=== PATIENT | female | born 1960 | race Caucasian/White ===

== ENCOUNTER 2016-09-13 11:05 | Day surgery (SDC) | payer BC ==
[2016-09-12 14:40] LABS: HEMATOCRIT 34.9 % (36.0-48.0); HEMOGLOBIN 11.6 g/dL (12.0-16.0)
[2016-09-12 14:55] LABS: A/G RATIO 1.1 (0.7-1.9); ALBUMIN 3.9 G/DL (3.5-5.0); ALKALINE PHOSPHATASE 56 U/L (45-117); BUN (BLOOD UREA NITROGEN) 19 MG/DL (6-23); CALCIUM, SERUM 9.2 MG/DL (8.5-10.4); CHLORIDE, SERUM 105 MMOL/L (96-112); CO2 (CARBON DIOXIDE) 29 MMOL/L (24-34); CREATININE 1.06 MG/DL (0.55-1.02); GFR AFRICAN AMERICAN 69 ML/MIN (>=60); GFR NON AFRICAN AMERICAN 59 ML/MIN (>=60); GLOBULIN 3.7 G/DL (2.5-4.1); GLUCOSE, SERUM 93 MG/DL (60-99); SGOT(AST) 18 U/L (5-40); SGPT(ALT) 20 U/L (5-65); SODIUM, SERUM 141 MMOL/L (135-148); TOTAL BILIRUBIN 0.4 MG/DL (0-1.2); TOTAL PROTEIN 7.6 G/DL (6.0-8.5)
--- NOTE | ~2016-09-13 | OP ---
Record Of Operation [facility] [address] [place]. [address] NAME: YOUSUF GOODE : 62 STATUS : REG [facility] PAT#: [id number] AGE: 55 ADM/REG DATE : 09/13/16 MR#: [id number] REPORT SERV DATE: 09/13/16 DICTATED BY: MERI STUART JR. 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 She is in need of venous access for chemotherapy. PREOPERATIVE DIAGNOSIS: Carcinoma of the left breast with need of venous access for chemotherapy. POSTOPERATIVE DIAGNOSIS: Carcinoma of the left breast with need of venous access for chemotherapy. SURGEON: Meri Stuart M.D. SURGERY PERFORMED: Insertion of PowerPort venous port. DESCRIPTION OF PROCEDURE: With anesthesia support, the patient was prepped and draped in supine position in the usual sterile fashion. The infraclavicular region on the right side was anesthetized. The needle was inserted, but I was unable to find the vein on two passes. At this point, the internal jugular was selected on the right side. The passage was accomplished on first stick with the needle. Fluoroscopy was used to document positioning. The catheter was inserted into the vein through a Tear-Away introducer. It was tunneled into the surgical site in the infraclavicular region on the right, where the pocket was created. The catheter system was assembled, aspirated, flushed, and secured to the chest wall with Prolene. Fluoroscopy revealed correct position of the catheter tip at the junction of the vena cava and atrium. No kinking of the catheter. The wound was irrigated. Hemostasis was obtained. The wound was wound closed with three layers of Monocryl. The patient tolerated the procedure well without complications. ESTIMATED BLOOD LOSS: Negligible. SPONGE COUNT: Correct. /JANIA Meri Stuart Jr., M.D. / [id number] Record Of Operation [facility] [address] [place]. [address] NAME: YOUSUF GOODE : 62 STATUS : REG [facility] PAT#: [id number] AGE: 55 ADM/REG DATE : 09/13/16 MR#: [id number] REPORT SERV DATE: 09/13/16 DICTATED BY: MERI STUART JR. DATE: 09/13/16 REPORT STATUS : Draft TRANSCRIBED BY: MODL DATE: 09/13/16 CC: Judi Olvera Jr. [facility] Judi Fisher M.D.
[~2016-09-13 11:05] MED LIST: ARMOUR THYRO90 MG PO; KLONO5 PO; LEXAPRO20 PO; NEUR300 PO; PROAIR HFA INH; ULTRAM50 PO; ZESTORETIC1 TA1 PO
== END 2016-09-13 19:25 | disposition home or self-care (01) ==
LOC: SDC 11:05
PROVIDERS: Surgery Surgical Oncology
PROC: 05HM33Z Insertion of Infusion Device into Right Internal Jugular Vein, Percutaneous Approach (ICD-10-PCS; 2016-09-13)
PROC: B513YZA Fluoroscopy of Right Jugular Veins using Other Contrast, Guidance (ICD-10-PCS; 2016-09-13)
PROC: 0JH60XZ Insertion of Tunneled Vascular Access Device into Chest Subcutaneous Tissue and Fascia, Open Approach (ICD-10-PCS; principal; 2016-09-13 12:15)
DX: C50.912 Malignant neoplasm of unspecified site of left female breast (principal); J45.909 Unspecified asthma, uncomplicated; E11.9 Type 2 diabetes mellitus without complications; M19.90 Unspecified osteoarthritis, unspecified site; E03.9 Hypothyroidism, unspecified; E66.01 Morbid (severe) obesity due to excess calories; F41.9 Anxiety disorder, unspecified; F32.9 Major depressive disorder, single episode, unspecified; I07.1 Rheumatic tricuspid insufficiency; I10 Essential (primary) hypertension; Z98.890 Other specified postprocedural states; Z90.49 Acquired absence of other specified parts of digestive tract; Z88.8 Allergy status to other drugs, medicaments and biological substances; Z68.36 Body mass index [BMI] 36.0-36.9, adult
CPT/HCPCS: 71010; 71020; 77001; 80053; 82962; 84703; 85014; 85018; 93005; 93306; A9270-GY; C1751; J2405; J3010

== ENCOUNTER 2016-10-17 17:36 | Inpatient (IN) | payer BC ==
--- NOTE | ~2016-10-17 | HP ---
History And Physical [place] [id number] [facility] [place]. [address] NAME: YOUSUF GOODE : 62 STATUS : ADM IN PAT#: [id number] AGE: 55 ADM/REG DATE : 10/17/16 MR#: [id number] REPORT SERV DATE: 10/17/16 DICTATED BY: CONNIE SOTELO DATE: 10/17/16 REPORT STATUS : Draft TRANSCRIBED BY: MODL DATE: 10/17/16 DATE OF ADMISSION: 10/17/2016 CHIEF COMPLAINT: Sent in from Oncology office for poor p.o. intake and diarrhea. HISTORY OF PRESENT ILLNESS: This is a 55-year-old female with breast cancer undergoing neoadjuvant chemotherapy with Dr. Cantor. I do not have access to her oncology note yet, but I am not sure of the exact details. She had chemo approximately 9 days ago and says she has had worsening diarrhea since that time. She said she did have diarrhea with the first round and this is her second round in this diarrhea had been worse. She says she did not sleep at night. She was up all night. She had chicken noodle soup and crackers and milk last night and she said the food just goes right through her. She also has some associated abdominal cramping which she says can get severe and she does take her pain medication for that. She says the pain does get better with bowel movements. The pain is mostly epigastric and across her upper abdomen. It does not radiate to the back. She has no associated chest pain or shortness of breath. No fevers at home. Of note, she did get Neulasta with her chemo regimen. PAST MEDICAL HISTORY: Includes IBS and thyroid disease. REVIEW OF SYSTEMS: A full review of systems is obtained and is negative with the exception of the above HPI. The patient also complains of weakness. FAMILY HISTORY: Her father has prostate cancer and leukemia and had breast cancer and the mother's side has Alzheimer's. SOCIAL HISTORY: Denies smoking or drinking. HOME MEDICATION: List pending at this time. PHYSICAL EXAMINATION: VITAL SIGNS: Temperature 97.9, blood pressure 122/70, saturating 95% on room air, and pulse of 83. GENERAL: This is a pleasant 55-year-old female, who appears her stated age. She is in no acute distress. HEENT: Extraocular muscles are intact. Sclerae anicteric. Pupils equal, round, and reactive to light. Mucous membranes moist. No thrush. NECK: Supple. LUNGS: Clear to auscultation bilaterally with no wheezes, rales, or rhonchi. The patient has symmetric expansion with normal respiratory effort. CARDIAC: Regular rate and rhythm with no appreciable murmurs. ABDOMEN: Soft, nontender, and nondistended. No palpable masses. EXTREMITIES: Lower extremities are warm and well perfused with no edema. SKIN: Warm, dry, and intact. She does have a nodular rash on her chest which she says she had the previous chemo. No open wounds or drainage noted. PSYCHIATRIC: The patient is History And Physical [address] [place]. [address] NAME: YOUSUF GOODE : 62 STATUS : ADM IN [facility]#: [id number] AGE: 55 ADM/REG DATE : 10/17/16 MR#: [id number] REPORT SERV DATE: 10/17/16 DICTATED BY: CONNIE SOTELO DATE: 10/17/16 REPORT STATUS : Draft TRANSCRIBED BY: JANIA DATE: 10/17/16 cooperative and appropriate. NEUROLOGIC: Cranial nerves 2 through 12 are grossly intact. Face is symmetric. Tongue is midline. Speech is fluent. LABORATORY DATA: I do not have any laboratory data from the office today. ASSESSMENT AND PLAN: This is a 55-year-old female, being admitted for persistent diarrhea at home and poor p.o. intake. 1. Diarrhea. Could be due to chemotherapy; however, we will check a C. diff given frequency of stool. She will be admitted to the hospital for a volume resuscitation as well. She can have p.r.n. anti-motility medications once her C. diff has come back negative. 2. Poor p.o. intake related to chemotherapy. We will give her IV fluids. 3. Breast cancer. Dr. Cantor will follow along with us. Await outpatient records for further details. She did get Neulasta with her last chemo regimen. 4. DVT prophylaxis with enoxaparin. 5. Code status. Full code. 6. Weakness. We will have a PT evaluation performed while she is in the hospital. FREDK/JANIA Connie Sotelo MD / [id number] CC: MD DOT Cool
--- NOTE | ~2016-10-17 | DS ---
Discharge Summary [place] [id number] [place] [place]. [address] NAME: YOUSUF GOODE : 62 STATUS : DIS IN PAT#: [id number] AGE: 55 ADM/REG DATE : 10/17/16 MR#: [id number] REPORT SERV DATE: 10/19/16 DICTATED BY: CONNIE SOTELO DATE: 10/19/16 REPORT STATUS : Draft TRANSCRIBED BY: MODL DATE: 10/19/16 ADMISSION DATE: 10/17/2016 DISCHARGE DATE: 10/19/2016 CHIEF COMPLAINT: Poor p.o. intake and diarrhea. DISCHARGING DIAGNOSES: 1. Enterocolitis, likely due to Taxotere. 2. Breast cancer followed by Dr. Cantor. 3. Anxiety. 4. Weakness due to dehydration. 5. Nausea with poor p.o. intake due to chemotherapy. 6. Anemia and mild thrombocytopenia due to chemotherapy. HISTORY OF PRESENT ILLNESS: Please see full H and P for details regarding initial presentation. HOSPITAL COURSE: 1. Enterocolitis due to Taxotere. The patient had colitis on KUB. She had C. diff sent which was negative. She was supported with anti-diarrheal medications and IV fluids. Dr. Cantor will follow as an outpatient. Continue to provide supportive care. 2. Breast cancer. Follow up with Dr. Cantor. 3. Anxiety. Continue home medications. 4. Nausea with poor p.o. intake. This has improved. The patient can be continued to monitor closely as an outpatient. 5. Anemia and mild thrombocytopenia. The patient did get Neulasta with chemotherapy. Her counts okay, requiring transfusion. Platelet count 140, hemoglobin 9.9, and white blood cell count 7.1. Follow up with Dr. Cantor as scheduled for further blood work and monitoring. DISCHARGE MEDICATIONS: Same as admission. Time spent on this discharge less than 30 minutes. JOE/JANIA Connie Sotelo MD / [id number] CC: MD DOT Cool
[2016-10-17 19:27] LABS: BASOPHILS 0 %; EOSINOPHILS 0.1 %; EOSINOPHILS ABSOLUTE 0.01 10/3/uL (0.0-0.53); HEMOGLOBIN 9.9 g/dL (12.0-16.0); IMMATURE GRANULOCYTES 0.4 %; IMMATURE GRANULOCYTES ABSOLUTE 0.03 10/3/uL (0.0-0.11); LYMPHOCYTES 34.5 %; LYMPHOCYTES ABSOLUTE 2.44 10/3/uL (0.67-4.30); MEAN CORPUS HGB CONC 34.1 g/dL (32.0-36.0); MEAN CORPUSCULAR HEMOGLOB 30.7 pg (26.0-34.0); MEAN CORPUSCULAR VOLUME 89.8 fL (80-100); MONOCYTES 4.1 %; MONOCYTES ABSOLUTE 0.29 10/3/uL (0.21-1.20); NEUTROPHILS 60.9 %; NEUTROPHILS ABSOLUTE 4.31 10/3/uL (2.02-8.40); PLATELET COUNT 140 10/3/uL (150-400); RBC DISTRIBUTION WIDTH 13.9 % (12.0-16.0); RED CELL COUNT 3.23 10/6/uL (4.0-5.6); WHITE BLOOD CELLS 7.1 10/3/uL (4.5-10.5)
[2016-10-17] MEDS ORDERED: NORCO1 TA1 PO (19:27)
[2016-10-17] MEDS ORDERED: CLARIT10 PO (19:28)
[2016-10-17] MEDS ORDERED: ATV.5 PO (19:28)
[2016-10-17] MEDS ORDERED: LOM PO (19:29)
[2016-10-17 19:30] LABS: MANUAL DIFF NO %
[2016-10-17] MEDS ORDERED: IMOD PO (19:30)
[2016-10-17 19:42] LABS: ALBUMIN 3.2 G/DL (3.5-5.0); BUN (BLOOD UREA NITROGEN) 19 MG/DL (6-23); CALCIUM, SERUM 8.5 MG/DL (8.5-10.4); CHLORIDE, SERUM 108 MMOL/L (96-112); CREATININE 1.03 MG/DL (0.55-1.02); GFR AFRICAN AMERICAN 71 ML/MIN (>=60); GFR NON AFRICAN AMERICAN 62 ML/MIN (>=60); GLOBULIN 3.3 G/DL (2.5-4.1); GLUCOSE, SERUM 96 MG/DL (60-99); SGPT(ALT) 46 U/L (5-65); SODIUM, SERUM 142 MMOL/L (135-148); TOTAL BILIRUBIN 0.3 MG/DL (0-1.2); TOTAL PROTEIN 6.5 G/DL (6.0-8.5)
[2016-10-17 19:43] LABS: ALKALINE PHOSPHATASE 72 U/L (45-117); CO2 (CARBON DIOXIDE) 23 MMOL/L (24-34); POTASSIUM, SERUM 3.5 MMOL/L (3.5-5.3); SGOT(AST) 22 U/L (5-40)
== END 2016-10-19 12:07 | disposition home or self-care (01) | DRG 918 ==
LOC: 4EA 17:36
PROVIDERS: Internal Medicine
DX: T45.1X5A Adverse effect of antineoplastic and immunosuppressive drugs, initial encounter (principal); D69.59 Other secondary thrombocytopenia; C50.919 Malignant neoplasm of unspecified site of unspecified female breast; K52.9 Noninfective gastroenteritis and colitis, unspecified; Z17.0 Estrogen receptor positive status [ER+]; F41.9 Anxiety disorder, unspecified
CPT/HCPCS: 74000; 80053; 83690; 85025; 87493; 87493-59; A9270-GY; J1170; J2405; J2550

== ENCOUNTER 2016-11-09 23:00 | Emergency (ER) | payer BC ==
[~2016-11-09 23:00] MED LIST changes: +ATV.5 PO; +CLARIT10 PO; +IMOD PO; +LOM PO; +NORCO1 TA1 PO
[2016-11-10 00:37] LABS: BASOPHILS 0.2 %; BASOPHILS ABSOLUTE 0.01 10/3/uL (0.0-0.16); EOSINOPHILS 0.2 %; EOSINOPHILS ABSOLUTE 0.01 10/3/uL (0.0-0.53); ER CBC TAT 0 Hrs 00 Mins; HEMATOCRIT 28.7 % (36.0-48.0); HEMOGLOBIN 9.9 g/dL (12.0-16.0); IMMATURE GRANULOCYTES 0.4 %; IMMATURE GRANULOCYTES ABSOLUTE 0.02 10/3/uL (0.0-0.11); LYMPHOCYTES 37.8 %; LYMPHOCYTES ABSOLUTE 1.85 10/3/uL (0.67-4.30); MEAN CORPUS HGB CONC 34.5 g/dL (32.0-36.0); MEAN CORPUSCULAR HEMOGLOB 31.3 pg (26.0-34.0); MEAN CORPUSCULAR VOLUME 90.8 fL (80-100); MEAN PLATELET VOLUME 9.8 fL (9.2-13.0); MONOCYTES ABSOLUTE 0.59 10/3/uL (0.21-1.20); NEUTROPHILS 49.4 %; NEUTROPHILS ABSOLUTE 2.42 10/3/uL (2.02-8.40); RED CELL COUNT 3.16 10/6/uL (4.0-5.6); WHITE BLOOD CELLS 4.9 10/3/uL (4.5-10.5)
[2016-11-10 00:37] LABS: ASCORBIC ACID (UR NOT ORDER) NEG (NEG); BILIRUBIN, URINE NEGATIVE (NEG); ER URINALYSIS TAT 0 Hrs 00 Mins; KETONE, URINE NEGATIVE (NEG); LEUKOCYTE ESTERASE(NOT OR MOD (NEG); NITRITE (URINE) NEG (NEG); WBC (NOT ORDERED) (RFLEX) 20 (0-5)
[2016-11-10 00:40] LABS: MANUAL DIFF NO %; PLATELET COUNT 243 10/3/uL (150-400)
[2016-11-10 00:47] LABS: A/G RATIO 1.1 (0.7-1.9); ALBUMIN 3.6 G/DL (3.5-5.0); ALKALINE PHOSPHATASE 93 U/L (45-117); BUN (BLOOD UREA NITROGEN) 14 MG/DL (6-23); CALCIUM, SERUM 9.1 MG/DL (8.5-10.4); CHLORIDE, SERUM 104 MMOL/L (96-112); CO2 (CARBON DIOXIDE) 30 MMOL/L (24-34); CREATININE 1.06 MG/DL (0.55-1.02); GFR AFRICAN AMERICAN 69 ML/MIN (>=60); GFR NON AFRICAN AMERICAN 59 ML/MIN (>=60); GLOBULIN 3.4 G/DL (2.5-4.1); GLUCOSE, SERUM 96 MG/DL (60-99); POTASSIUM, SERUM 3.6 MMOL/L (3.5-5.3); SGOT(AST) 22 U/L (5-40); SGPT(ALT) 30 U/L (5-65); SODIUM, SERUM 139 MMOL/L (135-148); TOTAL BILIRUBIN 0.3 MG/DL (0-1.2)
[2016-11-10 01:01] LABS: ER DIFF TAT 0 Hrs 20 Mins; LYMPHOCYTES 43 %; LYMPHOCYTES ABSOLUTE (CALC) 2.11 10/3/uL (0.67-4.30); MONOCYTES 5 %; MONOCYTES ABSOLUTE (CALC) 0.25 10/3/uL (0.21-1.20); NEUTROPHILS ABSOLUTE (CALC) 2.55 10/3/uL (2.02-8.40); SEGMENTED NEUTROPHIL (0) 52 %; TOTAL NUCLEATED CELLS 100
[2016-11-10 01:02] LABS: PLATELET ESTIMATE ADQ (ADEQUATE); RBC MORPHOLOGY NORM (NORMAL)
== END 2016-11-10 05:56 | disposition home or self-care (01) ==
LOC: ER 23:00
PROVIDERS: Emergency Medicine
DX: N39.0 Urinary tract infection, site not specified (principal); Z85.3 Personal history of malignant neoplasm of breast; Z88.5 Allergy status to narcotic agent; Z88.8 Allergy status to other drugs, medicaments and biological substances; Z79.899 Other long term (current) drug therapy
CPT/HCPCS: 80053; 81001; 83690; 85025; 87086; 96374; 99284; J2405

== ENCOUNTER 2016-12-02 19:12 | Inpatient (IN) | payer BC ==
--- NOTE | ~2016-12-02 | HP ---
History And Physical [address] [place]. [address] NAME: YOUSUF GOODE : 62 STATUS : ADM IN [facility]#: [id number] AGE: 56 ADM/REG DATE : 12/02/16 MR#: [id number] REPORT SERV DATE: 12/03/16 DICTATED BY: RADHA IZQUIERDO DATE: 12/02/16 REPORT STATUS : Draft TRANSCRIBED BY: MODL DATE: 12/02/16 DATE OF ADMISSION: 12/02/2016 CHIEF COMPLAINT: A 56-year-old female with breast cancer, on chemotherapy now presenting with severe dysphagia. HISTORY OF PRESENT ILLNESS: The patient's history was obtained through an interview with the patient and , coupled with review of [facility] and [employer] medical records. The patient has actually had a mild chronic dysphagia since she had a gastric band surgery in 2007 but when she was started on chemotherapy for breast cancer in August 2016, the symptoms have progressed rapidly. Now, she states that she has difficulty even getting down simple liquids and pills and has not had a significant amount of food in three days because of it. She describes nausea, episodes of vomiting for about three days. Since starting chemotherapy, the patient has actually had considerable weight gain about 50 pounds in fact. She believes that some of this is from fluid retention. She states that she has a discomfort sometimes with swallowing too. It is in her lower throat, quality "like a finger pushing on me," 2/10 severity. One of the patient's main complaints is just extreme fatigue, and lack of energy. She states "I practically live in my bed." No diarrhea, no shortness of breath. No chest pain. No cough. No fevers or chills. REVIEW OF SYSTEMS: Otherwise, a 14-point review of systems was obtained and was negative. PAST MEDICAL HISTORY: 1. Breast cancer, with no known metastases undergoing chemotherapy in preparation for anticipated radiation and mastectomy. She is ER positive, CT positive followed by Dr. Cantor. 2. Asthma. 3. Hypertension. 4. Borderline diabetes. 5. Hypothyroidism. 6. Esophageal dilatation. 7. Anxiety. 8. Neuropathy. PAST SURGICAL HISTORY: 1. Gastric band surgery under the care of Dr. Hussain Lopez in 2007 with an initial 90 pounds weight loss. History And Physical [address] [address] NAME: YOUSUF GOODE : 62 STATUS : ADM IN PAT#: [id number] AGE: 56 ADM/REG DATE : 12/02/16 MR#: [id number] REPORT SERV DATE: 12/03/16 DICTATED BY: RADHA IZQUIERDO DATE: 12/02/16 REPORT STATUS : Draft TRANSCRIBED BY: JANIA DATE: 12/02/16 2. Cholecystectomy. 3. Port-A-Cath placement. 4. Tubal ligation. 5. Skin cancer removal. ALLERGIES: TO BENADRYL, CODEINE, AND COMPAZINE. SOCIAL HISTORY: No tobacco abuse. No alcohol abuse. Lives in [place], [place]. She is . She has 3 daughters ages, 24, 31, and 35. Recently, she has had two of her daughters and four grandchildren living in home with her. She has a total of seven grandchildren. FAMILY HISTORY: An aunt with breast cancer. Father with prostate cancer. There is a family history of leukemia as well. Mother with Alzheimer's dementia. CURRENT MEDICATIONS: Unknown at this time. We have requested pharmacy to obtain a complete medication list for us to review. PHYSICAL EXAMINATION: VITAL SIGNS: Temperature 97.9, pulse 78, blood pressure 118/64, respiratory rate 16, O2 saturation 98% on room air. GENERAL: A pleasant, cooperative female. There is no evidence of distress at all. RESPIRATORY: Clear to auscultation at bases. No wheezes, rales, or rhonchi. Normal respiratory effort. CARDIOVASCULAR: Regular rate and rhythm. No murmurs, rubs, or gallops. No current extremity edema is appreciated. ABDOMEN: Soft, nontender, nondistended. Normal bowel sounds auscultated throughout. No hepatosplenomegaly. DERMATOLOGICAL: Warm and dry extremities. No pallor. No cyanosis. PSYCHIATRIC: Normal affect. Good mood. Alert and oriented x3. LABORATORY DATA: White blood cell count 2.7, hemoglobin 8.3, hematocrit 24.8, platelets 190, neutrophil count 1200. ASSESSMENT AND PLAN: 1. Dysphagia. Consult [facility] for upper endoscopy. 2. Breast cancer currently undergoing chemotherapy with anticipated surgery and radiation later this summer. Consult Dr. Cantor, oncologist. 3. Leukopenia with anemia. Absolute neutrophil count of 1200, induced by chemotherapy. 4. A 50 pound weight gain. Check brain natriuretic peptide, albumin level. 5. History of lap band gastric surgery. KPL/MODL Radha Pate History And Physical [address] [place]. [address] NAME: YOUSUF GOODE : 62 STATUS : ADM IN PAT#: [id number] AGE: 56 ADM/REG DATE : 12/02/16 MR#: [id number] REPORT SERV DATE: 12/03/16 DICTATED BY: RADHA IZQUIERDO DATE: 12/02/16 REPORT STATUS : Draft TRANSCRIBED BY: JANIA DATE: 12/02/16 Judi Izquierdo / [id number] CC: MD Marsha Montoya M.D.
--- NOTE | ~2016-12-02 | CN ---
Consultation Report [facility] [address] [place]. [address] NAME: TERI DAS : 62 STATUS : ADM IN PAT#: [id number] AGE: 56 ADM/REG DATE : 12/02/16 MR#: [id number] REPORT SERV DATE: 12/03/16 DICTATED BY: CABRERA GAGNON DATE: 12/03/16 REPORT STATUS : Draft TRANSCRIBED BY: MODL DATE: 12/03/16 GI CONSULTATION DATE OF CONSULTATION: 12/03/2016 REASON FOR CONSULTATION: Evaluation and management of dysphagia. HISTORY OF PRESENT ILLNESS: Ms. Teri Das is a 56-year-old female patient, who was to be seen by Dr. Magaña in the outpatient setting for complaints of dysphagia, who presented to [facility] secondary to increasing dysphagia and weakness. She has a history of a recent diagnosis of breast cancer, undergoing chemotherapy at the direction of Dr. Owen Cantor. She states she has completed four cycles of chemotherapy and is said to have potential surgery as well as radiation therapy later on in the summer. She complains of progressive dysphagia. She states that over the last few days she has only been able to get down some liquids. She states in terms of taking her medications by mouth she has to chew them up and has done so for the last several weeks. She states that over the last three days things have gotten "really bad" in regard to her dysphagia. She states that she has nausea. She will have episodes of regurgitation. She denies any melena, hematochezia, hematemesis, or coffee-ground emesis. She complains of some mild odynophagia and points to her lower esophagus. She states that it feels like something is pressing in, impeding her ability to swallow. She has had fatigue, lack of energy, unable to get out of the bed. No diarrhea. She has had no chest pain, shortness of breath, fever, or chills. She states that she had the Lap-Band surgery in 2007 under the direction of Dr. Lopez and since that time, she has had some intermittent issues with dysphagia. She still has the Lap Band in place, but states that it has not been "maintained for multiple years." She has had upper endoscopy, but she states it was in her 20s and has had nothing since that point in time. I have discussed with her that we will plan on EGD with possible dilation if able on 12/04/2016. I did discuss with her that if she had severe esophagitis, inflammatory process going on, this dilation would be delayed until healing of that. PAST MEDICAL HISTORY: Notable for breast cancer and by review of records, there are no signs of metastatic disease, she is on chemotherapy with potential XRT and surgical mastectomy in the summer; asthma; hypothyroidism; anxiety; neuropathy; obesity, status post gastric band; hypertension. PAST SURGICAL HISTORY: Lap-Band in 2007, Port-A-Cath placement, tubal ligation, skin cancer removal, cholecystectomy. ALLERGIES: LISTED TO BENADRYL, CODEINE, AND COMPAZINE. SOCIAL HISTORY: Consists of no alcohol, tobacco, or illicits. She lives independently. Currently unable to work secondary to chemotherapy. FAMILY HISTORY: Noncontributory from a GI standpoint. Consultation Report [address] [place]. [address] NAME: TERI DAS : 62 STATUS : ADM IN [facility]#: [id number] AGE: 56 ADM/REG DATE : 12/02/16 MR#: [id number] REPORT SERV DATE: 12/03/16 DICTATED BY: CABRERA GAGNON DATE: 12/03/16 REPORT STATUS : Draft TRANSCRIBED BY: JANIA DATE: 12/03/16 HOME MEDICATIONS: Consist of ProAir HFA, Klonopin, Lomotil, Lexapro, Neurontin, [place], Zestoretic, Claritin, Ativan, Zofran, Phenergan, [place] Thyroid, Ultram. REVIEW OF SYSTEMS: A 10-point review of systems has been obtained with pertinent positives being addressed in the history of present illness. PERTINENT LABORATORY DATA: Sodium 138, potassium is 3.9, BUN is 11, creatinine is 0.84. White count 3.2, hemoglobin 7.5, hematocrit is 21.5, platelet count 143. INR of 1. BNP 14. TSH of 1.450. PHYSICAL EXAMINATION: VITAL SIGNS: Temperature is 97.9, pulse 68, respirations 16, blood pressure 107/65. NEURO: Reveals an alert female, resting in bed. No obvious focal deficits. GENERAL: She is cooperative. She is in no acute distress. She is oriented x3. HEAD, EARS, EYES, NOSE, AND THROAT: Anicteric. Pupils equal, round, reactive to light and accommodation. Normocephalic and atraumatic. NECK: No JVD. No palpable nodes. Supple. LUNGS: Diminished in the bases bilaterally. Clear in the upper lobes. Normal respiratory effort exhibited. Equal expansion. CARDIOVASCULAR SYSTEM: Regular rate and rhythm. ABDOMEN: Soft, nontender, nondistended. She has no rebound or guarding elicited on exam. Unable to assess organomegaly. SKIN: Warm, dry, and intact. EXTREMITIES: She has scant edema. ASSESSMENT: 1. Progressive severe dysphagia. 2. Recent diagnosis of breast cancer, undergoing chemotherapy with potential for radiation and surgical intervention during the summer. 3. Anemia, question chemo induced. 4. History of obesity with Lap-Band surgery in 2007. PLAN: 1. Clear liquid diet and n.p.o. after midnight. 2. Protonix IV three times a day. 3. Add H2 inhibitor at night. 4. Add Carafate. 5. GI cocktail as needed. 6. EGD with possible dilation in the morning. Other recommendations to follow endoscopy. DG/MODL Consultation Report [address] [place]. [address] NAME: TERI DAS : 62 STATUS : ADM IN [facility]#: [id number] AGE: 56 ADM/REG DATE : 12/02/16 MR#: [id number] REPORT SERV DATE: 12/03/16 DICTATED BY: CABRERA GAGNON DATE: 12/03/16 REPORT STATUS : Draft TRANSCRIBED BY: JANIA DATE: 12/03/16 BRITTANY Liao / [id number] CC: MD Rush Montoya Sharon G
--- NOTE | ~2016-12-02 | DS ---
Discharge Summary [facility] [address] [place]. [address] NAME: YOUSUF GOODE : 62 STATUS : DIS IN PAT#: [id number] AGE: 56 ADM/REG DATE : 12/02/16 MR#: [id number] REPORT SERV DATE: 12/07/16 DICTATED BY: RK WINSTON DATE: 12/06/16 REPORT STATUS : Draft TRANSCRIBED BY: MODL DATE: 12/06/16 ADMISSION DATE: 12/02/2016 DISCHARGE DATE: 12/06/2016 REASON FOR ADMISSION: Severe dysphagia and esophagitis. HISTORY OF PRESENT ILLNESS: Please refer Dr. Riky Milan's history and physical dated 12/02/2016 for complete details regarding the patient's admission. In brief, the patient was admitted to the Hospitalist Service for management and evaluation of her dysphagia. HOSPITAL COURSE: The patient had uncomplicated hospital course. She has a history of breast cancer, currently undergoing chemotherapy, followed by Dr. Cantor. The patient had presented with significant esophagitis and dysphagia causing her to have dehydration. GI Medicine was consulted and Dr. Romano had performed an EGD on 12/04/2016, which showed monilial esophagitis, LA grade B reflux esophagitis, otherwise, normal exam. Recommended starting the patient on Diflucan 100 mg daily for three weeks along with Protonix 40 mg twice a day for six weeks. The patient has had at least two days worth of Diflucan. She is feeling better, still has some dysphagia, but it is markedly improved to the point now where she is able to tolerate some food. She did complain of some dysuria the day prior to discharge and checked the urinalysis, which showed hazy appearance, small leukocyte esterase, 158 white blood cells, many bacteria, and calcium oxalate crystals. She was started on Rocephin and will be discharged with oral Ceftin, noting that the final urine culture is still pending. Of note, a ROMMEL preparation done at the time of EGD did show abundant budding yeast and hyphenated yeast present. The patient has reached maximal hospitalization. She is requesting to go home today. She will be discharged home in a stable condition. DISCHARGE DIAGNOSES: 1. Layla esophagitis causing her dysphagia. 2. Dysuria/acute cystitis. Urine culture still pending. 3. Chemo-induced anemia. 4. Breast cancer, on chemotherapy. 5. Weakness secondary to dehydration, resolved. PROCEDURES: Include consultation with Dr. Romano and EGD. DISCHARGE MEDICATIONS: Include Ceftin 500 mg twice a day for seven days, Diflucan 100 mg once a day for 21 days, Protonix 40 mg twice a day for six weeks, Lexapro 20 mg at bedtime, Neurontin 300 mg three times a day, lisinopril/hydrochlorothiazide 20/25 one tablet daily, Claritin daily, [place] Thyroid 90 mg daily, albuterol p.r.n., Klonopin 0.5 mg twice a day p.r.n. anxiety, Lomotil p.r.n. diarrhea, [place] p.r.n. pain, Phenergan p.r.n. nausea, Zofran p.r.n. nausea, tramadol p.r.n. pain, and Ativan p.r.n. anxiety. FOLLOWUP: The patient will follow up with Dr. Cantor as scheduled. Discharge Summary [address] [address] NAME: YOUSUF GOODE : 62 STATUS : DIS IN PAT#: [id number] AGE: 56 ADM/REG DATE : 12/02/16 MR#: [id number] REPORT SERV DATE: 12/07/16 DICTATED BY: RK WINSTON DATE: 12/06/16 REPORT STATUS : Draft TRANSCRIBED BY: JANIA DATE: 12/06/16 DICTATED BY: MD PREET Montoya/JANIA Rk Winston MD / [id number] CC: MD AMRIK Montoya SHARON G
--- NOTE | ~2016-12-02 | EGD ---
EGD REPORT [facility] [address] [place]. [id number] NAME: TERI DAS : 62 STATUS : ADM Juan PAT#: [id number] AGE: 56 ADM/REG DATE : 12/02/16 MR#: [id number] REPORT SERV DATE: 12/04/16 DICTATED BY: CHATO AYALA DATE: 12/04/16 REPORT STATUS : Draft [facility]ANS[facility]IBED BY: [facility] DATE: 12/04/16 End[facility] Center Patient Name: Teri Das Date of : 1960 Attending MD: CHATO AYALA MD Procedure Date No Time: 12/04/2016 Procedure: Upper GI endoscopy Indications: Dysphagia Referring MD: Marsha Beverly MD Medicines: Monitored Anesthesia Care Complications: No immediate complications. Estimated blood loss: None. Procedure: Pre-Anesthesia Assessment: - ASA Grade Assessment: III - A patient with severe systemic disease. After obtaining informed consent, the endoscope was passed under direct vision. Throughout the procedure, the patient's blood pressure, pulse, and oxygen saturations were monitored continuously. The GIF [id number] was introduced through the mouth, and advanced to the second part of duodenum. The upper GI endoscopy was accomplished without difficulty. The patient tolerated the procedure well. Findings: Diffuse candidiasis was found in the entire esophagus. Cytology was performed. Estimated blood loss: none. LA Grade B (one or more mucosal breaks greater than 5 mm, not extending between the tops of two mucosal folds) esophagitis with no bleeding was found in the lower third of the esophagus. The stomach was normal. The examined duodenum was normal. The cardia and gastric fundus were normal on retroflexion. Impression: - Monilial esophagitis. Cells for cytology obtained. - LA Grade B reflux esophagitis. - Otherwise normal examination. Recommendation: - Return patient to [facility] for ongoing care. - Clear liquid diet and then advance diet as tolerated by symptoms. - Await pathology results. - Use Protonix (pantoprazole) 40 mg PO BID for 6 weeks. - Diflucan (fluconazole) 100 mg PO daily for 3 weeks. - Return to GI clinic as needed if symptoms are still present after treatment of mathew and reflux EGD REPORT [address] [address] NAME: TERI DAS : 62 STATUS : ADM Juan PAT#: [id number] AGE: 56 ADM/REG DATE : 12/02/16 MR#: [id number] REPORT SERV DATE: 12/04/16 DICTATED BY: CHATO AYALA DATE: 12/04/16 REPORT STATUS : Draft TRANSCRIBED BY: [employer] DATE: 12/04/16 esophagitis. Procedure Code(s): --- Professional --- 14005, Esophagogastroduodenoscopy, flexible, transoral; diagnostic, including collection of specimen(s) by brushing or washing, when performed (separate procedure) Diagnosis Code(s): --- Professional --- B37.81, Candidal esophagitis K21.0, Gastro-esophageal reflux disease with esophagitis R13.10, Dysphagia, unspecified CPT copyright 2013 [employer]. All rights reserved. The codes documented in this report are preliminary and upon jewelry bench molder review may be revised to meet current compliance requirements. Chato Ayala MD CHATO AYALA MD 12/04/2016 10:30 AM This report has been signed electronically. Number of Addenda: 0 Note Initiated On: 12/04/2016 9:53 AM Scope Withdrawal Time 0 hours 0 minutes 0 seconds [id number] [place] [id number]
[2016-12-02] MEDS ORDERED: Proair Hfa (21:02)
[2016-12-02] MEDS ORDERED: NEUR300 PO (21:03)
[2016-12-02] MEDS ORDERED: LEXAPRO20 PO (21:03)
[2016-12-02] MEDS ORDERED: LOM PO (21:03)
[2016-12-02] MEDS ORDERED: KLONO5 PO (21:03)
[2016-12-02] MEDS ORDERED: ZESTORETIC1 TA1 PO (21:04)
[2016-12-02] MEDS ORDERED: PR25 PO (21:04)
[2016-12-02] MEDS ORDERED: NORCO1 TA2 PO (21:04)
[2016-12-02] MEDS ORDERED: ULTRAM50 PO (21:05)
[2016-12-02] MEDS ORDERED: ZOFRANODT8 PO (21:05)
[2016-12-02] MEDS ORDERED: CLARIT10 PO (21:05)
[2016-12-02] MEDS ORDERED: ATV1 PO (21:05)
[2016-12-02] MEDS ORDERED: ARMOUR THYRO90 MG PO (21:06)
[2016-12-03 05:58] LABS: HEMATOCRIT 21.5 % (36.0-48.0); HEMOGLOBIN 7.5 g/dL (12.0-16.0); MEAN CORPUS HGB CONC 34.9 g/dL (32.0-36.0); MEAN CORPUSCULAR HEMOGLOB 33.2 pg (26.0-34.0); MEAN CORPUSCULAR VOLUME 95.1 fL (80-100); MEAN PLATELET VOLUME 8.8 fL (9.2-13.0); RBC DISTRIBUTION WIDTH 16.5 % (12.0-16.0); RED CELL COUNT 2.26 10/6/uL (4.0-5.6); WHITE BLOOD CELLS 3.2 10/3/uL (4.5-10.5)
[2016-12-03 05:59] LABS: MANUAL DIFF YES %; PLATELET COUNT 143 10/3/uL (150-400)
[2016-12-03 06:05] LABS: PROTIME (NOT ORD) 13.5 SEC (12.0-14.5)
[2016-12-03 06:20] LABS: BAND NEUTROPHILS 4 %; LYMPHOCYTES 18 %; LYMPHOCYTES ABSOLUTE (CALC) 0.58 10/3/uL (0.67-4.30); MONOCYTES 14 %; MONOCYTES ABSOLUTE (CALC) 0.45 10/3/uL (0.21-1.20); NEUTROPHILS ABSOLUTE (CALC) 2.18 10/3/uL (2.02-8.40); PLATELET ESTIMATE SLT DEC (ADEQUATE); RBC MORPHOLOGY NORM (NORMAL); SEGMENTED NEUTROPHIL (0) 64 %; TOTAL NUCLEATED CELLS 100
[2016-12-03 06:23] LABS: A/G RATIO 1.1 (0.7-1.9); ALBUMIN 3.4 G/DL (3.5-5.0); BUN (BLOOD UREA NITROGEN) 11 MG/DL (6-23); CHLORIDE, SERUM 106 MMOL/L (96-112); CREATININE 0.84 MG/DL (0.55-1.02); GFR AFRICAN AMERICAN 91 ML/MIN (>=60); GFR NON AFRICAN AMERICAN 78 ML/MIN (>=60); GLUCOSE, SERUM 112 MG/DL (60-99); POTASSIUM, SERUM 3.9 MMOL/L (3.5-5.3); SGOT(AST) 20 U/L (5-40); SGPT(ALT) 28 U/L (5-65); SODIUM, SERUM 138 MMOL/L (135-148); TOTAL BILIRUBIN 0.3 MG/DL (0-1.2); TOTAL PROTEIN 6.4 G/DL (6.0-8.5)
[2016-12-03 06:26] LABS: ALKALINE PHOSPHATASE 60 U/L (45-117); CO2 (CARBON DIOXIDE) 24 MMOL/L (24-34)
[2016-12-04 05:35] LABS: BASOPHILS 0 %; EOSINOPHILS 0 %; HEMOGLOBIN 7.4 g/dL (12.0-16.0); IMMATURE GRANULOCYTES 0.7 %; IMMATURE GRANULOCYTES ABSOLUTE 0.03 10/3/uL (0.0-0.11); LYMPHOCYTES 47.3 %; LYMPHOCYTES ABSOLUTE 2.14 10/3/uL (0.67-4.30); MEAN CORPUS HGB CONC 33.6 g/dL (32.0-36.0); MEAN CORPUSCULAR HEMOGLOB 32.7 pg (26.0-34.0); MEAN CORPUSCULAR VOLUME 97.3 fL (80-100); MONOCYTES 13.9 %; MONOCYTES ABSOLUTE 0.63 10/3/uL (0.21-1.20); NEUTROPHILS 38.1 %; NEUTROPHILS ABSOLUTE 1.72 10/3/uL (2.02-8.40); PLATELET COUNT 141 10/3/uL (150-400); RBC DISTRIBUTION WIDTH 16.9 % (12.0-16.0); RED CELL COUNT 2.26 10/6/uL (4.0-5.6)
[2016-12-04 05:36] LABS: MANUAL DIFF NO %; WHITE BLOOD CELLS 4.5 10/3/uL (4.5-10.5)
[2016-12-04 05:41] LABS: INTERNATIONAL NORMAL RATI 1.1 UNITS (-); PROTIME (NOT ORD) 13.8 SEC (12.0-14.5)
[2016-12-04 05:45] LABS: BUN (BLOOD UREA NITROGEN) 8 MG/DL (6-23); CALCIUM, SERUM 8.9 MG/DL (8.5-10.4); CHLORIDE, SERUM 111 MMOL/L (96-112); CO2 (CARBON DIOXIDE) 22 MMOL/L (24-34); CREATININE 0.88 MG/DL (0.55-1.02); GFR AFRICAN AMERICAN 86 ML/MIN (>=60); GFR NON AFRICAN AMERICAN 74 ML/MIN (>=60); GLUCOSE, SERUM 81 MG/DL (60-99); POTASSIUM, SERUM 3.7 MMOL/L (3.5-5.3); SODIUM, SERUM 140 MMOL/L (135-148)
[2016-12-06 04:43] LABS: ASCORBIC ACID (UR NOT ORDER) NEG (NEG); BILIRUBIN, URINE NEGATIVE (NEG); KETONE, URINE NEGATIVE (NEG); LEUKOCYTE ESTERASE(NOT OR SMALL (NEG); WBC (NOT ORDERED) (RFLEX) 158 (0-5)
[2016-12-06] MEDS ORDERED: CEFT5 PO (09:24)
[2016-12-06] MEDS ORDERED: FLUCON1 PO (09:24)
[2016-12-06] MEDS ORDERED: PROTONIX PO (09:25)
== END 2016-12-06 14:42 | disposition home or self-care (01) | DRG 369 ==
LOC: 4SO 19:12
PROVIDERS: Internal Medicine; Internal Medicine Gastroenterology; Nurse Practitioner Family
PROC: 0DJ08ZZ Inspection of Upper Intestinal Tract, Via Natural or Artificial Opening Endoscopic (ICD-10-PCS; principal; 2016-12-04 08:00)
DX: B37.81 Candidal esophagitis (principal); N30.00 Acute cystitis without hematuria; R13.10 Dysphagia, unspecified; C50.919 Malignant neoplasm of unspecified site of unspecified female breast; D64.81 Anemia due to antineoplastic chemotherapy; G62.9 Polyneuropathy, unspecified; E86.0 Dehydration; K21.0 Gastro-esophageal reflux disease with esophagitis; Z17.0 Estrogen receptor positive status [ER+]; E03.9 Hypothyroidism, unspecified; F41.9 Anxiety disorder, unspecified; I10 Essential (primary) hypertension; J45.909 Unspecified asthma, uncomplicated; Z79.899 Other long term (current) drug therapy; Z98.84 Bariatric surgery status; Z88.5 Allergy status to narcotic agent; Z88.8 Allergy status to other drugs, medicaments and biological substances; R53.1 Weakness; Z79.891 Long term (current) use of opiate analgesic; Z85.828 Personal history of other malignant neoplasm of skin; Z87.891 Personal history of nicotine dependence; F32.9 Major depressive disorder, single episode, unspecified; E66.9 Obesity, unspecified; Z68.36 Body mass index [BMI] 36.0-36.9, adult
CPT/HCPCS: 80048; 80053; 81001; 83735; 83880; 84443; 85025; 85610; 85730; 87077; 87086; 87186; 87210; A9270-GY; C9113; J2250; J2405

== ENCOUNTER 2016-12-11 15:32 | Emergency (ER) | payer BC ==
[~2016-12-11 15:32] MED LIST changes: +ATV1 PO; +CEFT5 PO; +FLUCON1 PO; +NORCO1 TA2 PO; +PR25 PO; +PROTONIX PO; +Proair Hfa; +ZOFRANODT8 PO
[2016-12-11 16:44] LABS: BASOPHILS 0 %; EOSINOPHILS 0 %; ER CBC TAT 0 Hrs 07 Mins; HEMOGLOBIN 8.2 g/dL (12.0-16.0); IMMATURE GRANULOCYTES 0.2 %; IMMATURE GRANULOCYTES ABSOLUTE 0.01 10/3/uL (0.0-0.11); LYMPHOCYTES 43.8 %; LYMPHOCYTES ABSOLUTE 1.77 10/3/uL (0.67-4.30); MEAN CORPUS HGB CONC 32.9 g/dL (32.0-36.0); MEAN CORPUSCULAR HEMOGLOB 32.9 pg (26.0-34.0); MEAN PLATELET VOLUME 8.5 fL (9.2-13.0); MONOCYTES 7.2 %; MONOCYTES ABSOLUTE 0.29 10/3/uL (0.21-1.20); NEUTROPHILS 48.8 %; NEUTROPHILS ABSOLUTE 1.97 10/3/uL (2.02-8.40); PLATELET COUNT 117 10/3/uL (150-400); RED CELL COUNT 2.49 10/6/uL (4.0-5.6)
[2016-12-11 16:45] LABS: HEMATOCRIT 24.9 % (36.0-48.0); MANUAL DIFF NO %
[2016-12-11 17:00] LABS: PARTIAL THROMBO TIME 30.3 SEC (22.5-37.2); PROTIME (NOT ORD) 13.2 SEC (12.0-14.5)
[2016-12-11 17:05] LABS: BUN (BLOOD UREA NITROGEN) 9 MG/DL (6-23); CALCIUM, SERUM 9.1 MG/DL (8.5-10.4); CHEST PAIN PROFILE TAT 0 Hrs 28 Mins; CHLORIDE, SERUM 105 MMOL/L (96-112); CREATININE 0.82 MG/DL (0.55-1.02); GFR AFRICAN AMERICAN 93 ML/MIN (>=60); GFR NON AFRICAN AMERICAN 81 ML/MIN (>=60); GLUCOSE, SERUM 87 MG/DL (60-99); POTASSIUM, SERUM 3.7 MMOL/L (3.5-5.3); SODIUM, SERUM 141 MMOL/L (135-148); TROPONIN I <0.02 NG/ML (<0.05)
[2016-12-11 17:06] LABS: CO2 (CARBON DIOXIDE) 31 MMOL/L (24-34)
[2016-12-11 18:02] LABS: LACTATE 1.1 MMOL/L (0.3-2.4)
[2016-12-11 18:12] LABS: PROCALCITONIN <0.05 ng/mL (<0.5)
== END 2016-12-11 20:19 | disposition home or self-care (01) ==
LOC: ER 15:32
PROVIDERS: Nurse Practitioner
DX: R07.81 Pleurodynia (principal); C50.912 Malignant neoplasm of unspecified site of left female breast; I10 Essential (primary) hypertension; E11.9 Type 2 diabetes mellitus without complications; Z88.5 Allergy status to narcotic agent; Z88.8 Allergy status to other drugs, medicaments and biological substances; Z79.899 Other long term (current) drug therapy
CPT/HCPCS: 71010; 71275; 80048; 83605; 83735; 83880; 84145; 84484; 85025; 85610; 85730; 93005; 96374; 96375; 99285; J1170; J2405; Q9967